=== PATIENT | male | born 1965 | race Hispanic/Latino ===

== ENCOUNTER 2020-11-29 20:05 | Emergency (ER) | payer BC, OTHER ==
--- NOTE | 2020-11-29 20:59 | RAD REPORT ---
EXAM DESCRIPTION: CT - Head Brain Wo Cont - 11/29/2020 8:41 pm CLINICAL HISTORY: Headache COMPARISON: None. TECHNIQUE: Computed axial tomography of the head was obtained. IV contrast was not requested. All CT scans are performed using dose optimization technique as appropriate and may include automated exposure control or mA/KV adjustment according to patient size. FINDINGS: An intracranial bleed is not seen . The ventricles are normal in caliber. No extra-axial fluid collection is noted. Fluid within the sinuses/ mastoids is not seen. IMPRESSION: No acute intracranial abnormality is seen. If patient's symptoms persist MRI of the bra in would be recommended.
[2020-11-29 21:01] LABS: Absolute Lymphocytes (CBC) 1.9 K/uL (0.7-4.9); Basophils % 0.9 % (0-1.3); Hematocrit 42.9 % (39.6-49.0); Lymphocytes % 30.9 % (15.3-44.8); MPV 8.9 fL (7.6-11.3)
[2020-11-29] MEDS ORDERED: ONDANSETRON 4 MG/2 ML VIAL ONE (21:04)
[2020-11-29 21:05] LABS: Protime INR 0.96
[2020-11-29] MEDS ORDERED: NA CHLORIDE 0.9% 1,000 ML ONE (21:05)
[2020-11-29] MEDS ORDERED: MEPERIDINE HCL 25 MG/ML SYR ONE (21:05)
[2020-11-29 21:21] LABS: Potassium 3.5 mmol/L (3.5-5.1)
--- NOTE | 2020-11-29 22:17 | ER ---
Nurse's Notes [facility] Name: Marlon Aparicio Age: 55 yrs Sex: Male : 1965 Arrival Date: 11/29/2020 Time: 20:13 Bed 20 Private MD: Diagnosis: Essential (primary) hypertension;Headache Presentation: 11/29 20:19 Chief complaint: Patient states: Reports he has been feeling anxious got bad news and ea has been feeling shaky and his blood pressure is elevated. Pt reports taking lisinopril 10mg QD. Coronavirus screen: At this time, the client does not indicate any symptoms associated with coronavirus-19. Ebola Screen: No symptoms or risks identified at this time. Initial Sepsis Screen: Does the patient meet any 2 criteria? No. Patient's initial sepsis screen is negative. Does the patient have a suspected source of infection? No. Patient's initial sepsis screen is negative. Risk Assessment: Do you want to hurt yourself or someone else? Patient reports no desire to harm self or others. Onset of symptoms was November 29, 2020. 20:19 Method Of Arrival: Ambulatory ea 20:19 Acuity: KERRIE 3 ea Historical: - Allergies: 20:21 No Known Allergies; ea - Home Meds: 20:21 lisinopril 10 mg Oral tab 1 tab once daily [Active]; ea - PMHx: 20:21 BPH; ea - Immunization history:: Adult Immunizations up to date. - Social history:: Smoking status: unknown. Screenin:21 Abuse screen: Denies threats or abuse. Nutritional screening: No deficits noted. ea Tuberculosis screening: No symptoms or risk factors identified. Fall Risk None identified. Assessment: 21:00 General: Appears in no apparent distress. comfortable, Behavior is calm, cooperative. vg1 Pain: Complains of pain in head Pain currently is 4 out of 10 on a pain scale. Pain began 2 hours ago. Neuro: Level of Consciousness is awake, alert, obeys commands, Oriented to person, place, time, situation, Reports headache. Cardiovascular: Patient's skin is warm and dry. Respiratory: Airway is patent Respiratory effort is even, unlabored. GI: No signs and/or symptoms were reported involving the gastrointestinal system. : No signs and/or symptoms were reported regarding the genitourinary system. EENT: No signs and/or symptoms were reported regarding the EENT system. Derm: Skin is intact, is healthy with good turgor. Musculoskeletal: Circulation, motion, and sensation intact. Vital Signs: 20:19 BP 164 / 105; Pulse 87; Resp 18; Temp 98.1; Pulse Ox 100% ; Weight 72.57 kg; Height 5 ea ft. 8 in. (172.72 cm); 20:19 Body Mass Index 24.33 (72.57 kg, 172.72 cm) ea ED Course: 20:13 Patient arrived in ED. es 20:13 Lydia Jenkins, RN is Primary Nurse. vg1 20:21 Triage completed. ea 20:21 Patient has correct armband on for positive identification. Bed in low position. Call ea light in reach. secured entrance monitor on. Pulse ox on. NIBP on. 20:21 Arm band placed on right wrist. Patient placed in an exam room, on a stretcher, on ea surveillance monitor, on pulse oximetry. EKG completed in triage. Results shown to MD. 20:26 Jin Gold PA is PHCP. cp 20:26 Jaime Lobato MD is Attending Physician. cp 20:41 CT Head Brain wo Cont In Process Unspecified. EDMS 20:54 Initial lab(s) drawn, by me, sent to lab. Inserted saline lock: 20 gauge in left tt3 antecubital area, using aseptic technique. Blood collected. 22:02 Report given to STEPHAINA Erickson. vg1 22:48 No provider procedures requiring assistance completed. IV discontinued, intact, ld1 bleeding controlled, No redness/swelling at site. Administered Medications: 21:00 Drug: NS 0.9% 1000 ml Route: IV; Rate: 1 bolus; Site: left antecubital; vg1 21:47 Follow up: IV Status: Completed infusion; IV Intake: 1000ml vg1 21:01 Drug: Zofran (Ondansetron) 4 mg Route: IVP; Site: left antecubital; vg1 21:47 Follow up: Response: No adverse reaction; Nausea is decreased vg1 21:03 Drug: Demerol (meperidine) 12.5 mg Route: IVP; Site: left antecubital; vg1 21:47 Follow up: Response: No adverse reaction; Pain is decreased vg1 Intake: 21:47 IV: 1000ml; Total: 1000ml. vg1 Outcome: 22:17 Discharge ordered by . cp 22:48 Discharged to home ambulatory. ld1 22:48 Condition: stable 22:48 Discharge instructions given to patient, family, Instructed on discharge instructions, follow up and referral plans. medication usage, Demonstrated understanding of instructions, follow-up care, medications. 22:48 Patient left the ED. ld1 Signatures: Dispatcher [employer] EDKatie Mandujano Corey, PA PA cp Antunez, Elena, RN RN Lydia Dillon RN RN vg1 Tommy Bustamante tt3 Rebekah Cortes RN RN ld1
--- NOTE | 2020-11-29 22:18 | EDPHYS ---
Physician Documentation [facility] Name: Marlon Aparicio Age: 55 yrs Sex: Male : 1965 Arrival Date: 11/29/2020 Time: 20:13 Bed 20 Private MD: ED Physician Jaime Lboato HPI: 11/29 20:35 This 55 yrs old Male presents to ER via Ambulatory with complaints of Elevated cp Blood Pressure. 20:35 The patient has elevated blood pressure and discovered this at home. cp 20:35 Associated signs and symptoms: Pertinent positives: headache, Pertinent negatives: cp chest pain, dizziness, visual changes, vomiting, weakness. Severity of symptoms: in the emergency department the blood pressure is improved, mildly, 164 mm Hg. Patient reports history of hypertension in the past and being prescribed Lisinopril. Patient reports he stopped taking blood pressure medication about 1 month ago. Reports noticing elevated blood pressure today so he took Lisinopril prior to arrival. C/o headache, general weakness. Historical: - Allergies: 20:21 No Known Allergies; ea - Home Meds: 20:21 lisinopril 10 mg Oral tab 1 tab once daily [Active]; ea - PMHx: 20:21 BPH; ea - Immunization history:: Adult Immunizations up to date. - Social history:: Smoking status: unknown. ROS: 20:40 Constitutional: Negative for body aches, chills, fever, poor PO intake. cp 20:40 Eyes: Negative for injury, pain, redness, and discharge. cp 20:40 ENT: Negative for ear pain, sore throat, difficulty swallowing, difficulty handling secretions. 20:40 Cardiovascular: Negative for chest pain, edema, palpitations. 20:40 Respiratory: Negative for cough, shortness of breath, wheezing. 20:40 Abdomen/GI: Negative for abdominal pain, nausea, vomiting, and diarrhea. 20:40 Neuro: Positive for headache, weakness, Negative for altered mental status, dizziness, numbness, tingling. 20:40 All other systems are negative. Exam: 20:20 ECG was reviewed by the Attending Physician. cp 20:45 Constitutional: The patient appears in no acute distress, alert, awake, cp non-diaphoretic, non-toxic, well developed, well nourished. 20:45 Head/Face: Normocephalic, atraumatic. cp 20:45 Eyes: Periorbital structures: appear normal, Pupils: equal, round, and reactive to light and accomodation, Extraocular movements: intact throughout, Conjunctiva: normal, no exudate, no injection, Sclera: no appreciated abnormality, Lids and lashes: appear normal, bilaterally. 20:45 ENT: External ear(s): are unremarkable, Nose: is normal, Mouth: Lips: moist, Oral mucosa: moist, Posterior pharynx: Airway: no evidence of obstruction, patent. 20:45 Neck: ROM/movement: is normal, is supple, without pain, no range of motions limitations. 20:45 Chest/axilla: Inspection: normal, Palpation: is normal, no crepitus, no tenderness. 20:45 Cardiovascular: Rate: normal, Rhythm: regular, Edema: is not appreciated, JVD: is not appreciated. 20:45 Respiratory: the patient does not display signs of respiratory distress, Respirations: normal, no use of accessory muscles, no retractions, labored breathing, is not present, Breath sounds: are clear throughout, no decreased breath sounds. 20:45 Abdomen/GI: Inspection: abdomen appears normal, Palpation: abdomen is soft and non-tender, in all quadrants. 20:45 Neuro: Orientation: to person, place \T\ time. Mentation: is normal, Cerebellar function: is grossly normal, Motor: moves all fours, strength is normal, Sensation: is normal. Vital Signs: 20:19 BP 164 / 105; Pulse 87; Resp 18; Temp 98.1; Pulse Ox 100% ; Weight 72.57 kg; Height 5 ea ft. 8 in. (172.72 cm); 20:19 Body Mass Index 24.33 (72.57 kg, 172.72 cm) ea MDM: 20:30 Patient medically screened. cp 21:00 Differential diagnosis: hypertensive crisis, Malignant HTN, CVA, intracerebral cp hemorrhage. 22:15 Data reviewed: vital signs, nurses notes, lab test result(s), EKG, radiologic studies, cp CT scan. 22:15 Test interpretation: by ED physician or midlevel provider: ECG. Counseling: I had a cp detailed discussion with the patient and/or guardian regarding: the historical points, exam findings, and any diagnostic results supporting the discharge/admit diagnosis, the presence of at least one elevated blood pressure reading (>120/80) during this emergency department visit, lab results, radiology results, the need for outpatient follow up, a family practitioner, to return to the emergency department if symptoms worsen or persist or if there are any questions or concerns that arise at home. ED course: VSS. Headache improved with meds. CT head negative for acute findings. Will discharge to home for continued monitoring. 11/29 20:32 Order name: CBC with Diff; Complete Time: 21:33 cp 11/29 21:34 Interpretation: Reviewed. cp 11/29 20:32 Order name: BMP; Complete Time: 21:33 cp 11/29 21:33 Interpretation: Normal except: GLUC 131; GFR 70. cp 11/29 20:32 Order name: CT Head Brain wo Cont; Complete Time: 21:33 cp 11/29 21:33 Interpretation: Report reviewed. cp 11/29 20:32 Order name: PT-INR; Complete Time: 21:33 cp 11/29 20:32 Order name: EKG; Complete Time: 20:33 cp 11/29 20:32 Order name: EKG - Nurse/Tech; Complete Time: 20:39 cp EC:20 Rate is 77 beats/min. Rhythm is regular. PA interval is normal. QRS interval is normal. cp QT interval is normal. T waves are Inverted in lead aVR. Interpreted by me. Reviewed by me. Administered Medications: 21:00 Drug: NS 0.9% 1000 ml Route: IV; Rate: 1 bolus; Site: left antecubital; vg1 21:47 Follow up: IV Status: Completed infusion; IV Intake: 1000ml vg1 21:01 Drug: Zofran (Ondansetron) 4 mg Route: IVP; Site: left antecubital; vg1 21:47 Follow up: Response: No adverse reaction; Nausea is decreased vg1 21:03 Drug: Demerol (meperidine) 12.5 mg Route: IVP; Site: left antecubital; vg1 21:47 Follow up: Response: No adverse reaction; Pain is decreased vg1 Disposition: 11/30 19:59 Co-signature as Attending Physician, Jaime Lobato MD. ma2 Disposition Summary: 11/29/20 22:17 Discharge Ordered Location: Home cp Problem: new cp Symptoms: have improved cp Condition: Stable cp Diagnosis - Essential (primary) hypertension cp - Headache cp Followup: cp - With: Private Physician - When: 2 - 3 days - Reason: Recheck today's complaints Discharge Instructions: - Discharge Summary Sheet cp - General Headache Without Cause cp - Hypertension, Adult cp - How to Take Your Blood Pressure, [id number] cp - Form - Blood Pressure Record Sheet cp - Aspirin and Your Heart cp Forms: - Medication Reconciliation Form cp - Thank You Letter cp - Antibiotic Education cp - Prescription Opioid Use cp Signatures: Dispatcher [employer] EDMS Jin Gold PA PA cp Karina Crespo, RN RN Jaime Taylor MD MD ma2 Lydia Jenkins RN RN vg1 Corrections: (The following items were deleted from the chart) 01:31 01:30 This 55 yrs old Male presents to ER via Ambulatory with complaints of cp Elevated Blood Pressure. cp
[2020-11-29 22:58] VITALS: BP 164/105; TEMP 98.1; O2SAT 100
--- NOTE | 2020-11-30 16:35 | EKG ---
Test Date: 2020-11-29 Test Time: 20:14:50 College Coach: LING MEASUREMENT RESULTS: Intervals: Rate: 77 RI: 164 QRSD: 86 QT: 368 QTc: 416 [place]: P: 30 RI: 164 QRS: 55 T: 47 INTERPRETIVE STATEMENTS: Normal sinus rhythm Normal ECG No previous ECG available for comparison Electronically Signed On 11-30-20 16:33:05 CDT by Keyon Jean Baptiste
== END 2020-11-29 22:48 | disposition home or self-care (01) ==
LOC: ER 20:05
DX: I10 Essential (primary) hypertension (principal)
CPT/HCPCS: 85025; 80048; 36415; 85610; 70450; J2175; J7030; J2405; 93005; 96361; 96374; 96375; 99284

== ENCOUNTER 2021-02-13 07:32 | Day surgery (SDC) | payer OTHER ==
[2021-02-13] MEDS ORDERED: Ringers Lactate 1,000 ML IV ONE (08:00)
[2021-02-13] MEDS ORDERED: LIDOCAINE 1% MPF 5 ML VIAL ONE (08:49)
[2021-02-13] MEDS ORDERED: propofoL 200 MG/20 ML VIAL IV ONE (08:49)
--- NOTE | 2021-02-13 08:52 | ENDO RPT ---
[address], [address] COLONOSCOPY PROCEDURE REPORT EXAM DATE: 02/13/2021 PATIENT NAME: Marlon Chapman MR #: [id number] BIRTHDATE: 1965 ATTENDING: Mundo Zelaya MD STATUS: outpatient HOUSE PARENT: Meera Zhao RN and Eva Brown CST INDICATIONS: The patient is a 55 yr old Male here for a colonoscopy due to rectal bleeding PROCEDURE PERFORMED: Colonoscopy with biopsy MEDICATIONS: Per Anesthesia. ESTIMATED BLOOD LOSS: None CONSENT: The patient understands the risks and benefits of the procedure and understands that these risks include, but are not limited to: sedation, allergic reaction, infection, perforation and/or bleeding. Alternative means of evaluation and treatment include, among others: physical exam, x-rays, and/or surgical intervention. The patient elects to proceed with this endoscopic procedure. DESCRIPTION OF PROCEDURE: During intra-op preparation period all mechanical medical equipment was checked for proper function. Hand hygiene and appropriate measures for infection prevention was taken. Procedure, possible complications, alternatives including, but not limited to possibility of bleeding, perforation, tear, infection, sepsis, need for surgery, need for blood transfusion, were explained to the patient. After the risks, benefits and alternatives of the procedure were thoroughly explained, Informed consent was verified, confirmed and timeout was successfully executed by the treatment team. The patient was placed in the left lateral position. A digital rectal exam was performed and revealed external hemorrhoids. After appropriate level of anesthesia, the scope was passed. The EC-[id number] ([id number]) endoscope was introduced through the anus and advanced to the cecum, which was identified by transillumination from the light source, the appendix, and the ileocecal valve. The quality of the prep was good. The instrument was then slowly withdrawn as the colon was fully examined. Scope withdrawal time was . COLON FINDINGS: A circumferential diffuse patch of abnormal mucosa was found in the rectum from anal verge to approximately 20 cm, continuous with a clear delineation to normal mucosa pass that point. The mucosa was edematous, congested, oozing blood and friable. Multiple biopsies of the area were performed using hot forceps. Retroflexed views revealed no abnormalities. The scope was then completely withdrawn from the patient and the procedure terminated. ADVERSE EVENTS: There were no complications. IMPRESSIONS: Circumferential diffuse abnormal mucosa was found in the rectum; The mucosa was edematous, congested, oozing blood and friable; multiple biopsies of the area were performed using hot forceps RECOMMENDATIONS: 1. await biopsy results 2. follow-up: office 1 week(s) 3. levaquin 750 daily RECALL: for Colonoscopy, pending biopsy results. Mundo Zelaya MD eSigned: Mundo Zelaya MD 02/13/2021 8:51 AM cc: Clement Hudson MD CPT CODES: ICD9 CODES: PATIENT NAME: Marlon Chapman MR#: [id number]
[2021-02-13 09:23] VITALS: TEMP 96.5
[2021-02-13 09:24] VITALS: BP 101/76; O2SAT 99
== END 2021-02-13 09:33 | disposition home or self-care (01) ==
LOC: OR 07:32
PROVIDERS: ATTEND Surgery
PROC: 0DBP8ZX Excision of Rectum, Via Natural or Artificial Opening Endoscopic, Diagnostic (ICD-10-PCS; principal; 2021-02-13 08:30)
DX: K62.5 Hemorrhage of anus and rectum (principal); I10 Essential (primary) hypertension; E78.5 Hyperlipidemia, unspecified; F41.8 Other specified anxiety disorders; K64.4 Residual hemorrhoidal skin tags; K52.9 Noninfective gastroenteritis and colitis, unspecified; K62.89 Other specified diseases of anus and rectum; R19.7 Diarrhea, unspecified; Z80.0 Family history of malignant neoplasm of digestive organs; Z20.822 Contact with and (suspected) exposure to COVID-19
CPT/HCPCS: 88305; 45384; U0002; J2704; J7120

== ENCOUNTER 2021-06-10 21:40 | Emergency (ER) | payer OTHER ==
--- OUTSIDE RECORDS SUMMARY | 2021-06-10 21:43 | XMS REPORT | Continuity of Care Document ---
:1965 Author Organization [facility] t Address [address] [place] [address] Care Team Providers Name Role Phone Pcp, Patient Does Not Have A Primary Care Physician +[id number] Only, Db Test Attending Clinician Unavailable [employer] Attending Clinician Doctor Unassigned, Name Attending Clinician Unavailable Payers Payer Name Policy Type Policy Number Effective Date Expiration Date S ource Problems This patient has no known problems. Allergies, Adverse Reactions, Alerts This patient has no known allergies or adverse reactions. Social History Social Habit Start Date Stop Date Quantity Comments Source Exposure to Not sure [facility] SARS-CoV-2 (event) [facility] Sex Assigned At [birth year] [facility] 00:00:00 00:00:00 [facility] Smoking Status Start Date Stop Date Source Unknown if ever smoked [facility] Medications This patient has no known medications. Immunizations Ordered Filled Immunization Date Status Comments Sour e Immunization Name Name SARS-COV-2 COVID-19 2020-09-05 Completed Unive rsity of PFIZER VACCINE 00:00:00 [facility] SARS-COV-2 COVID-19 2020-09-05 Completed Unive rsity of PFIZER VACCINE 00:00:00 [facility] SARS-COV-2 COVID-19 2020-09-05 Completed Unive rsity of PFIZER VACCINE 00:00:00 [facility] SARS-COV-2 COVID-19 2020-08-13 Completed Unive rsity of PFIZER VACCINE 00:00:00 [facility] SARS-COV-2 COVID-19 2020-08-13 Completed Unive rsity of PFIZER VACCINE 00:00:00 [facility] SARS-COV-2 COVID-19 2020-08-13 Completed Unive rsity of PFIZER VACCINE 00:00:00 [facility] Procedures This patient has no known procedures. Encounters Start End Encounter Admission Attending Care Care Encounter Source Date/Time Date/Time Type Type Clinicians Facility Department ID 2021-06-08 2021-06-08 Laboratory Only, Ang Db Test [facility] [id number] [id number] [facility] 16:30:00 16:45:00 Only [employer] [id number] [facility] [id number] [place] as ALAN?BLEA [phone] [address] MEDICAL OFFICE BUILDING 2021-06-08 2021-06-08 Letter Doctor HAYDEE [id number] [facility] 00:00:00 00:00:00 (Out) Unassigned, JOSE ANTONIO [id number] ity of [facility] [id number] [place] as [phone] [address] 2021-06-08 2021-06-08 Letter Doctor HAYDEE [id number] [facility] 00:00:00 00:00:00 (Out) Unassigned, JOSE ANTONIO [id number] ity of [facility] [id number] [place] as [phone] [address] 2021-03-31 2021-03-31 Outpatient [facility] [id number] [facility] 2021-03-10 2021-03-10 [facility] [id number] [facility] 2021-03-03 2021-03-03 [facility] [id number] [facility] 2021-01-31 2021-01-31 [facility] [id number] [facility] 2021-01-02 2021-01-02 [facility] [id number] 2020-12-16 2020-12-16 [facility] [id number] [facility] Clin[facility] Results This patient has no known results.
--- NOTE | 2021-06-10 22:14 | ER ---
Nurse's Notes [facility] Name: Marlon Aparicio Age: 55 yrs Sex: Male : 1965 Arrival Date: 06/10/2021 Time: 21:43 Bed Waiting Private MD: Diagnosis: ED Course: 06/10 21:43 Patient arrived in ED. bp1 22:13 Patient's name was called from ER lobby. No response. Unable to locate patient. Will bb disposition as left without being seen by a provider. Administered Medications: No medications were administered Outcome: 22:14 Patient left the ED. bb Signatures: Mariella Fan RN RN bb Tiarra Cullen bp1
== END 2021-06-10 22:14 | disposition left against medical advice (07) ==
LOC: ER 21:40
DX: Z02.9 Encounter for administrative examinations, unspecified (principal)

== ENCOUNTER 2023-01-10 13:20 | Emergency (ER) | payer OTHER ==
--- OUTSIDE RECORDS SUMMARY | 2023-01-10 13:26 | XMS REPORT | Continuity of Care Document ---
:1965 Author Organization [facility] t Address [address] [place] [address] [place] [id number] Care Team Providers Name Role Phone Chris Hudsoncurt Horne Primary Care Physician Chris Hudsonh Coleen Attending Clinician Unavailable Doctor Unassigned, [place] Attending Clinician Unavailable MUKUND SHEARER Attending Clinician Unavailable Mukund Shearer MD Attending Clinician ROMA DAVIS Attending Clinician Unavailable ROMA DAVIS Attending Clinician Unavailable [facility], [facility] Attending Clinician Unavailable Roma Davis MD Attending Clinician CHRISTIAN MACDONALD Attending Clinician Unavailable Christian Macdonald MD Attending Clinician Only, Ang Db Test Attending Clinician Unavailable Mercy Mckeon Attending Clinician MERCY MURRELL Attending Clinician Unavailable BERHANE MACEDO Attending Clinician Unavailable MUKUND SHEARER Admitting Clinician Unavailable Payers Payer Name Policy Type Policy Number Effective Date Expiration Date Acosta MEZA 53 [id number] 2020 [facility] - 00:00:00 [facility] Problems Condition Condition Condition Status Onset Resolution Last Treating Co mments Source Name Details Category Date Date Treatment Clinician Date No known No known Disease Unive rs active active ity of problems problems [facility] Mixed Mixed Problem Common hyperlipid hyperlipid Sp myron emia emia - [facility] Essential Essential Problem Com mon hypertensi (primary) Spi rit on hypertensi - [facility] on [facility] Generalize MARIANA Problem Commo n d anxiety (generaliz Spi rit disorder ed anxiety - CH I disorder) [facility] [id number] Non-season Problem Com mon al [facility] allergic [facility] All[facility]ies, Adverse Reactions, Alerts Allergy Allergy Status Severity Reaction(s) Onset Inactive Treating Comm ents Source Name Type Date Date Clinician NO KNOWN Drug Active Univers ALLERGIE Class ity of S [facility] Social History Social Habit Start Date Stop Date Quantity Comments Source History of Tobacco [facility] Sex Assigned At [facility] - [facility] Exposure to 2021-09-30 2021-10-10 Not sure [facility] SARS-CoV-2 (event) 00:00:00 13:55:00 Medica l Branch Smoking Status Start Date Stop Date Source Tobacco smoking consumption [facility] unknown Branch Never Smoker [facility] Medications Ordered Filled Start Stop Current Ordering Indication Dosage Frequency Signature Comments Components Source Medication Medication Date Date Medication? Clinician (SIG) Name Name clonazePAM clonazePAM No 1{table clonazePAM 0.25 MG 0.25 MG 5-16 t_on_th 0.25 MG 00:00: e_tongu e_and_a llow_to _dissol ve} clonazePAM clonazePAM No 1{table clonazePAM 0.25 MG 0.25 MG 4-14 t_on_th 0.25 MG 00:00: e_tongu 00 e_and_a llow_to _dissol ve} clonazePAM clonazePAM No 1{table clonazePAM 0.25 MG 0.25 MG 4-14 t_on_th 0.25 MG 00:00: e_tongu 00 e_and_a llow_to _dissol ve} Azithromyci Azithromyci 2022-0 2022- No QD Azithromyc n 250 MG n 250 MG 07-26 in 250 MG 00:00: 00:00 00 :00 ketorolac 2021- No 30mg 30 mg, Unive rs (TORADOL) 06-19 Intramuscu ity of injection 11:45: 10:37 lar, ONCE, [place] 30 mg 00 :00 1 dose, On Medical Mon Branch 06/19/21 at 0545, MARY butalbital- 2021- No 1{tbl} 1 tablet, Univers acetaminoph 06-19 Oral, ity of en-caff 10:45: 09:51 ONCE, 1 [place] (ESGIC) 00 :00 dose, On Medical 50-325-40 Mon Branch mg tablet 1 06/19/21 at tablet 0445, Routine traMADoL Yes 4647 50mg Take 1 Univers (ULTRAM) 50 1-17 tablet by ity of mg tablet 00:00: mouth [place] 00 every 6 Medical (six) Branch hours as needed for Pain (scale 7-10). Indication s: acute pain traMADoL Yes 4647 50mg Take 1 Univers (ULTRAM) 50 1-17 tablet by ity of mg tablet 00:00: mouth [place] 00 every 6 Medical (six) Branch hours as needed for Pain (scale 7-10). Indication s: acute pain traMADoL Yes 4647 50mg Take 1 Univers (ULTRAM) 50 1-17 tablet by ity of mg tablet 00:00: mouth [place] 00 every 6 Medical (six) Branch hours as needed for Pain (scale 7-10). Indication s: acute pain traMADoL Yes 4647 50mg Take 1 Univers (ULTRAM) 50 1-17 tablet by ity of mg tablet 00:00: mouth [place] 00 every 6 Medical (six) Branch hours as needed for Pain (scale 7-10). Indication s: acute pain traMADoL Yes 4647 50mg Take 1 Univers (ULTRAM) 50 1-17 tablet by ity of mg tablet 00:00: mouth [place] 00 every 6 Medical (six) Branch hours as needed for Pain (scale 7-10). Indication s: acute pain traMADoL 2022-0 Yes 4647 50mg Take 1 Univers (ULTRAM) 50 1-17 tablet by ity of mg tablet 00:00: mouth [place] 00 every 6 Medical (six) Branch hours as needed for Pain (scale 7-10). Indication s: acute pain traMADoL Yes 4647 50mg Take 1 Univers (ULTRAM) 50 1-17 tablet by ity of mg tablet 00:00: mouth [place] 00 every 6 Medical (six) Branch hours as needed for Pain (scale 7-10). Indication s: acute pain traMADoL Yes 4647 50mg Take 1 Univers (ULTRAM) 50 1-17 tablet by ity of mg tablet 00:00: mouth [place] 00 every 6 Medical (six) Branch hours as needed for Pain (scale 7-10). Indication s: acute pain traMADoL Yes 4647 50mg Take 1 Univers (ULTRAM) 50 1-17 tablet by ity of mg tablet 00:00: mouth [place] 00 every 6 Medical (six) Branch hours as needed for Pain (scale 7-10). Indication s: acute pain traMADoL Yes 4647 50mg Take 1 Univers (ULTRAM) 50 1-17 tablet by ity of mg tablet 00:00: mouth [place] 00 every 6 Medical (six) Branch hours as needed for Pain (scale 7-10). Indication s: acute pain traMADoL Yes 4647 50mg Take 1 Univers (ULTRAM) 50 1-17 tablet by ity of mg tablet 00:00: mouth [place] 00 every 6 Medical (six) Branch hours as needed for Pain (scale 7-10). Indication s: acute pain Flonase Flonase 2020-06 No 1{spray QD Flonase Allergy Allergy 0-08 _in_eac Allergy Relief 50 Relief 50 00:00: h_nostr Relief 50 MCG/ACT MCG/ACT 00 il} MCG/ACT Flonase Flonase 2020-06 No 1{spray QD Flonase Allergy Allergy 0-08 _in_eac Allergy Relief 50 Relief 50 00:00: h_nostr Relief 50 MCG/ACT MCG/ACT 00 il} MCG/ACT Flonase Flonase 2020-06 No 1{spray QD Flonase Allergy Allergy 0-08 _in_eac Allergy Relief 50 Relief 50 00:00: h_nostr Relief 50 MCG/ACT MCG/ACT 00 il} MCG/ACT Flonase Flonase 2020-06 No 1{spray QD Flonase Allergy Allergy 0-08 _in_eac Allergy Relief 50 Relief 50 00:00: h_nostr Relief 50 MCG/ACT MCG/ACT 00 il} MCG/ACT Flonase Flonase 2020-06 No 1{spray QD Flonase Allergy Allergy 0-08 _in_eac Allergy Relief 50 Relief 50 00:00: h_nostr Relief 50 MCG/ACT MCG/ACT 00 il} MCG/ACT Flonase Flonase 2020-06 No 1{spray QD Flonase Allergy Allergy 0-08 _in_eac Allergy Relief 50 Relief 50 00:00: h_nostr Relief 50 MCG/ACT MCG/ACT 00 il} MCG/ACT Fluticasone Fluticasone 2020-06 No 1{spray QD Fluticason Propionate Propionate 0-01 _in_eac e 50 MCG/ACT 50 MCG/ACT 00:00: h_nostr Propionate 00 il} 50 MCG/ACT Fluticasone Fluticasone 2020-06 No 1{spray QD Fluticason Propionate Propionate 0-01 _in_eac e 50 MCG/ACT 50 MCG/ACT 00:00: h_nostr Propionate 00 il} 50 MCG/ACT Fluticasone Fluticasone 2020-06 No 1{spray QD Fluticason Propionate Propionate 0-01 _in_eac e 50 MCG/ACT 50 MCG/ACT 00:00: h_nostr Propionate 00 il} 50 MCG/ACT Fluticasone Fluticasone 2020-06 No 1{spray QD Fluticason Propionate Propionate 0-01 _in_eac e 50 MCG/ACT 50 MCG/ACT 00:00: h_nostr Propionate 00 il} 50 MCG/ACT Fluticasone Fluticasone 2020-06 No 1{spray QD Fluticason Propionate Propionate 0-01 _in_eac e 50 MCG/ACT 50 MCG/ACT 00:00: h_nostr Propionate 00 il} 50 MCG/ACT Fluticasone Fluticasone 2020-06 No 1{spray QD Fluticason Propionate Propionate 0-01 _in_eac e 50 MCG/ACT 50 MCG/ACT 00:00: h_nostr Propionate 00 il} 50 MCG/ACT Fluticasone Fluticasone 2020-06 No 1{spray QD Fluticason Propionate Propionate 0 _in_eac e 50 MCG/ACT 50 MCG/ACT 00:00: h_nostr Propionate 00 il} 50 MCG/ACT Metoprolol Metoprolol 2020-0 No 1{table QD Metoprolol Succinate Succinate 8-31 t} Succinate ER 50 MG ER 50 MG 00:00: ER 50 MG 00 Propranolol Propranolol 2020-0 No BID Propranolo HCl 10 MG HCl 10 MG 8-02 l HCl 10 00:00: MG 00 Propranolol Propranolol 2020-0 No BID Propranolo HCl 10 MG HCl 10 MG 8-02 l HCl 10 00:00: MG 00 Propranolol Propranolol 2020-0 No BID Propranolo HCl 10 MG HCl 10 MG 8-02 l HCl 10 00:00: MG 00 Propranolol Propranolol 2020-0 No BID Propranolo HCl 10 MG HCl 10 MG 8-02 l HCl 10 00:00: MG 00 Propranolol Propranolol 2020-0 No 1{table QD Propranolo HCl 10 MG HCl 10 MG 7-16 t} l HCl 10 00:00: MG 00 Propranolol Propranolol 2020-0 No 1{table QD Propranolo HCl 10 MG HCl 10 MG 7-16 t} l HCl 10 00:00: MG 00 Propranolol Propranolol No Propranolo HCl 10 MG HCl 10 MG l HCl 10 MG Metoprolol Metoprolol No 1{table QD Metoprolol Succinate Succinate t} Succinate ER 50 MG ER 50 MG ER 50 MG Metoprolol Metoprolol No 1{table QD Metoprolol Succinate Succinate t} Succinate ER 50 MG ER 50 MG ER 50 MG Propranolol Propranolol No Propranolo HCl 10 MG HCl 10 MG l HCl 10 MG Metoprolol Metoprolol No 1{table QD Metoprolol Succinate Succinate t} Succinate ER 50 MG ER 50 MG ER 50 MG Propranolol Propranolol No Propranolo HCl 10 MG HCl 10 MG l HCl 10 MG Metoprolol Metoprolol No 1{table QD Metoprolol Succinate Succinate t} Succinate ER 50 MG ER 50 MG ER 50 MG Propranolol Propranolol No Propranolo HCl 10 MG HCl 10 MG l HCl 10 MG Metoprolol Metoprolol No 1{table QD Metoprolol Succinate Succinate t} Succinate ER 50 MG ER 50 MG ER 50 MG Propranolol Propranolol No Propranolo HCl 10 MG HCl 10 MG l HCl 10 MG Fluticasone Fluticasone No 1{spray QD Fluticason Propionate Propionate _in_eac e 50 MCG/ACT 50 MCG/ACT h_nostr Propionate il} 50 MCG/ACT Metoprolol Metoprolol No 1{table QD Metoprolol Succinate Succinate t} Succinate ER 50 MG ER 50 MG ER 50 MG Lisinopril Lisinopril No 1{table QD Lisinopril 10 MG 10 MG t} 10 MG Carvedilol Carvedilol No 1{table BID Carvedilol 6.25 MG 6.25 MG t_with_ 6.25 MG food} Metoprolol Metoprolol No 1{table QD Metoprolol Succinate Succinate t} Succinate ER 50 MG ER 50 MG ER 50 MG Metoprolol Metoprolol No 1{table QD Metoprolol Succinate Succinate t} Succinate ER 50 MG ER 50 MG ER 50 MG Immunizations Ordered Filled Immunization Date Status Comments Sourc e Immunization Name Name Adacel (Tdap) Adacel (Tdap) 2021-03-03 Completed [facility] - 08[facility]00 [facility] Adacel (Tdap) Adacel (Tdap) 2021-03-03 Completed [facility] - 08:34:00 [facility] Adacel (Tdap) Adacel (Tdap) 2021-03-03 Completed [facility] - 08:34:00 [facility] Adacel (Tdap) Adacel (Tdap) 2021-03-03 Completed [facility] - 08:34:00 [facility] Adacel (Tdap) Adacel (Tdap) 2021-03-03 Completed [facility] - 08:34:00 [facility] Adacel (Tdap) Adacel (Tdap) 2021-03-03 Completed [facility] - 08:34:00 [facility] Adacel (Tdap) Adacel (Tdap) 2021-03-03 Completed [facility] - 08:34:00 [facility] Adacel (Tdap) Adacel (Tdap) 2021-03-03 Completed [facility] - 08:34:00 [facility] Afluria Afluria 2021-03-02 Completed [facility] - 08[facility]21:00 [facility] Afluria Afluria 2021-03-02 Completed [facility] - 08:21:00 [facility] Afluria Afluria 2021-03-02 Completed [facility] - 08:21:00 [facility] Afluria Afluria 2021-03-02 Completed [facility] - 08:21:00 [facility] Afluria Afluria 2021-03-02 Completed [facility] - 08:21:00 [facility] Afluria Afluria 2021-03-02 Completed [facility] - 08:21:00 [facility] Afluria Afluria 2021-03-02 Completed [facility] - 08:21:00 [facility] Afluria Afluria 2021-03-02 Completed [facility] - 08:21:00 [facility] SARS-COV-2 COVID-19 2020-09-05 Completed Unive rsity of PFIZER VACCINE 00:00:00 [facility] SARS-COV-2 COVID-19 2020-09-05 Completed Unive rsity of PFIZER VACCINE 00:00:00 [facility] SARS-COV-2 COVID-19 2020-09-05 Completed Unive rsity of PFIZER VACCINE 00:00:00 [facility] SARS-COV-2 COVID-19 2020-09-05 Completed Unive rsity of PFIZER VACCINE 00:00:00 [facility] SARS-COV-2 COVID-19 2020-09-05 Completed Unive rsity of PFIZER VACCINE 00:00:00 [facility] SARS-COV-2 COVID-19 2020-09-05 Completed Unive rsity of PFIZER VACCINE 00:00:00 [facility] SARS-COV-2 COVID-19 2020-09-05 Completed Unive rsity of PFIZER VACCINE 00:00:00 [facility] SARS-COV-2 COVID-19 2020-08-13 Completed Unive rsity of PFIZER VACCINE 00:00:00 [facility] SARS-COV-2 COVID-19 2020-08-13 Completed Unive rsity of PFIZER VACCINE 00:00:00 [facility] SARS-COV-2 COVID-19 2020-08-13 Completed Unive rsity of PFIZER VACCINE 00:00:00 [facility] SARS-COV-2 COVID-19 2020-08-13 Completed Unive rsity of PFIZER VACCINE 00:00:00 [facility] SARS-COV-2 COVID-19 2020-08-13 Completed Unive rsity of PFIZER VACCINE 00:00:00 [facility] SARS-COV-2 COVID-19 2020-08-13 Completed Unive rsity of PFIZER VACCINE 00:00:00 [facility] SARS-COV-2 COVID-19 2020-08-13 Completed Unive rsity of PFIZER VACCINE 00:00:00 [facility] Vital Signs Vital Name Observation Time Observation Value Comments Source height 2021-09-14 16:20:00 69 [in_i] [facility] weight 2021-09-14 16:20:00 156 [lb_av] [facility] bmi 2021-09-14 16:20:00 23.03 kg/m2 [facility] height 2021-07-26 11:00:00 69 [in_i] [facility] weight 2021-07-26 11:00:00 156 [lb_av] [facility] temperature 2021-07-26 11:00:00 98 [degF] [facility] bmi 2021-07-26 11:00:00 23.03 kg/m2 [facility] blood pressure 2021-07-26 11:00:00 125 mm[Hg] [facility] - systolic [facility] blood pressure 2021-07-26 11:00:00 86 mm[Hg] [facility] - diastolic [facility] Systolic blood 2021-06-19 10:00:00 125 mm[Hg] Univer sity of pressure [facility] Diastolic blood 2021-06-19 10:00:00 89 mm[Hg] Unive rsity of pressure [facility] Heart rate 2021-06-19 10:00:00 68 /min [facility] [place] Respiratory rate 2021-06-19 10:00:00 15 /min [facility] in 2021-06-19 10:00:00 98 /min University Arterial blood by [facility] Pulse oximetry Branch Body temperature 2021-06-19 09:14:00 36.56 Lynne [facility] Body height 2021-06-19 09:14:00 175.3 cm Universi ty [facility] Body weight 2021-06-19 09:14:00 71.169 kg Universi ty [facility] BMI 2021-06-19 09:14:00 23.17 kg/m2 Universi [facility] [place] height 2021-03-31 11:30:00 69 [in_i] [facility] weight 2021-03-31 11:30:00 154.2 [lb_av] [facility] temperature 2021-03-31 11:30:00 97.3 [degF] [facility] bmi 2021-03-31 11:30:00 22.77 kg/m2 [facility] oximetry 2021-03-31 11:30:00 98 % [facility] respiratory rate 2021-03-31 11:30:00 17 /min Comm on [facility] blood pressure 2021-03-31 11:30:00 114 mm[Hg] [facility] - systolic [facility] blood pressure 2021-03-31 11:30:00 77 mm[Hg] Common [facility] - diastolic [facility] height 2021-03-03 08:20:00 69 [in_i] [facility] weight 2021-03-03 08:20:00 152.5 [lb_av] [facility] temperature 2021-03-03 08:20:00 97.0 [degF] [facility] bmi 2021-03-03 08:20:00 22.52 kg/m2 [facility] oximetry 2021-03-03 08:20:00 97 % [facility] respiratory rate 2021-03-03 08:20:00 16 /min Comm on [facility] blood pressure 2021-03-03 08:20:00 121 mm[Hg] Common [facility] - systolic [facility] blood pressure 2021-03-03 08:20:00 80 mm[Hg] Common [facility] - diastolic [facility] height 2021-01-31 16:40:00 69 [in_i] Common [facility] weight 2021-01-31 16:40:00 150.0 [lb_av] Common [facility] temperature 2021-01-31 16:40:00 98.1 [degF] Common [facility] bmi 2021-01-31 16:40:00 22.15 kg/m2 [facility] oximetry 2021-01-31 16:40:00 98 % Common [facility] respiratory rate 2021-01-31 16:40:00 17 /min Comm on [facility] blood pressure 2021-01-31 16:40:00 131 mm[Hg] Common [facility] - systolic [facility] blood pressure 2021-01-31 16:40:00 79 mm[Hg] Common [facility] - diastolic [facility] height 2020-12-16 09:30:00 69 [in_i] Common [facility] weight 2020-12-16 09:30:00 154.7 [lb_av] Common [facility] temperature 2020-12-16 09:30:00 97.2 [degF] Common [facility] bmi 2020-12-16 09:30:00 22.84 kg/m2 Common [facility] oximetry 2020-12-16 09:30:00 97 % Common [facility] respiratory rate 2020-12-16 09:30:00 16 /min Comm on [facility] blood pressure 2020-12-16 09:30:00 104 mm[Hg] Common [facility] - systolic [facility] blood pressure 2020-12-16 09:30:00 69 mm[Hg] Common [facility] Procedures Procedure Date / Time Performing Clinician Source Performed AUTHORIZATION FOR 2022-02-28 05:01:00 Doctor Unassigned, No Univ [facility] RELEASE OF PHI Name Medical Branch AUTHORIZATION FOR 2021-10-26 05:01:00 Doctor Unassigned, No [facility] Name Medical Branch US ABDOMEN LIMITED 2021-10-13 21:12:27 Mukund Shearer [facility] [place] CONSENT/REFUSAL FOR 2021-09-26 17:32:52 Doctor Unassigned, No [facility] [place] DIAGNOSIS AND TREATMENT Name Medical Branch NOTICE OF PRIVACY 2021-06-19 09:05:44 Doctor Unassigned, No Univ [facility] PRACTICES Name Medical Branch CONSENT/REFUSAL FOR 2021-06-19 09:05:29 Doctor Unassigned, No [facility] DIAGNOSIS AND TREATMENT Name Medical Branch Encounters Start End Encounter Admission Attending Care Care Encounter Source Date/Time Date/Time Type Type Clinicians Facility Department ID 2022-10-15 Outpatient Hudson, [facility] [id number] Common 11:54:00 Clement [address] [facility] 2021-10-03 [facility], [facility] [id number] Common 12:01:01 Clement [facility] 2021-07-26 Outpatient Hudson, [facility] [id number] Common 08:28:02 Clement [facility] 2021-07-20 [facility], [facility] [id number] Common 16:50:03 Clement [facility] 2021-06-28 Outpatient Hudson, [facility] [id number] Common 14:06:13 Clement 23156 [facility] 2021-06-28 Outpatient Hudson, [facility] [id number] Common 14:02:18 Clement 86752 [facility] 2021-06-28 Outpatient Hudson, [facility] [id number] Common 13:55:14 Clement 01866 [facility] 2021-06-28 Outpatient Hudson, [facility] [id number] Common 13:45:53 Clement 11187 [facility] 2021-06-28 Outpatient Hudson, [facility] [id number] Common 13:32:49 Clement 16170 [facility] 2021-06-28 Outpatient Hudson, [facility] [id number] Common 13:31:02 Clement 55034 [facility] 2021-06-28 Outpatient Hudson, [facility] [id number] Common 13:26:54 Clement 316[address] [facility] 2022-02-28 2022-02-28 Orders Doctor HAYDEE [id number] Univers 00:00:00 00:00:00 Only Unassigned, JOSE ANTONIO [id number] ity of [place] [facility] [id number] [place] as [phone] [address] 2021-10-26 2021-10-26 Orders Doctor HAYDEE [id number] [facility] 00:00:00 00:00:00 Only Unassigned, JOSE ANTONIO [id number] ity of [place] [facility] [id number] [place] as [phone] [address] 2021-10-13 2021-10-13 Outpatient R NICA [facility] [id number] Univers 15:58:14 23:59:00 MUKUND ity [facility] 2021-10-13 2021-10-13 [facility] Shearer, [facility] [id number] Univers 15:58:14 23:59:00 Encounter Mukund CRISOSTOMO [id number] ity [facility] [id number] [facility] [id number] [facility] [address] [place] 2021-10-11 2021-10-11 Outpatient R ROMA DAVIS [facility] [id number] Univers 19:30:00 19:30:00 ROMA DAVIS ity [facility] 2021-09-26 2021-09-26 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 10 ity of [place] [id number] [facility] [id number] [facility] 193 Branch 2021-09-26 2021-09-26 Outpatient R ROMA DAVIS [facility] [id number] Univers 12:00:00 12:00:00 BLAIR DAVISSanjay ity [facility] 2021-09-26 2021-09-26 Orders Doctor HAYDEE [id number] Univers 00:00:00 00:00:00 Only Unassigned, JOSE ANTONIO [id number] ity of [facility] [id number] [place] [address] [id number] [facility] 009 Branch 2021-09-14 2021-09-14 OL DIG E/M STLMLC STLMLC [id number] Common 00:00:00 00:00:00 [facility] 11-20 Spir it [facility] 2021-09-14 2021-09-14 (TEL) STLMLC STLMLC [id number] Co mmon 00:00:00 00:00:00 [facility] 2021-07-26 2021-07-26 (TEL) STLMLC STLMLC [id number] Co mmon 00:00:00 00:00:00 [facility] 2021-07-26 2021-07-26 OFFICE STLMLC STLMLC [id number] Co mmon 00:00:00 00:00:00 VISIT EST Spir it PT LEVEL 3 - [facility] 2021-07-07 2021-07-07 (TEL) STLMLC STLMLC [id number] Co mmon 00:00:00 00:00:00 [facility] 2021-06-19 2021-06-19 Emergency X TORRES [facility] ERT [id number] Univers 03:16:00 05:09:00 ANASTASIALI ity of [facility] 2021-06-19 2021-06-19 Emergency Yar[place], [facility] [id number] Univers 03:16:00 05:09:00 Christian CRISOSTOMO [id number] ity of [place] [id number] [place] [phone] [address] 2021-06-16 2021-06-16 Laboratory Only, Ang Db Test [facility] [id number] Univers 10:15:00 10:30:00 Only Nyasia [facility] [id number] ity of [place] [id number] [place] as ALAN?BLEA [id number] [address] MEDICAL OFFICE BUILDING 2021-06-16 2021-06-16 Outpatient R NYASIA [facility] [id number] Univers 10:15:00 10:16:47 MERCY ity [facility] 2021-03-31 2021-03-31 OFFICE STLMLC STLMLC [id number] Co mmon 00:00:00 00:00:00 VISIT EST Spir it PT LEVEL 3 - [facility] 2021-03-10 2021-03-10 (TEL) STLMLC STLMLC [id number] Co mmon 00:00:00 00:00:00 [facility] 2021-03-03 2021-03-03 PREV VISIT STLMLC STLMLC [id number] Common 00:00:00 00:00:00 EST AGE [facility] 40-64 - [facility] [facility] 2021-01-31 2021-01-31 OFFICE STLMLC STLMLC [id number] Co mmon 00:00:00 00:00:00 VISIT EST Spir it PT LEVEL 3 - [facility] 2021-01-02 2021-01-02 (TEL) STLMLC STLMLC [id number] Co mmon 00:00:00 00:00:00 [facility] 2020-12-16 2020-12-16 OFFICE STLMLC STLMLC [id number] Co mmon 00:00:00 00:00:00 VISIT NEW Spir it PT LEVEL 4 - [facility] 2020-09-05 2020-09-05 Outpatient Larry MACEDO [facility] [id number] Manuel 08:20:00 08:20:00 [place] ity [facility] 2020-08-13 2020-08-13 Outpatient [facility] [id number] [employer] 08:55:00 08:55:00 [facility] Results This patient has no known results.
[2023-01-10 14:14] LABS: Absolute Lymphocytes (CBC) 1.9 K/uL (0.7-4.9); Hematocrit 48.3 % (39.6-49.0); Lymphocytes % 31.1 % (15.3-44.8); MCV 87.7 fL (80-100); Platelets 198 thou/uL (152-406)
[2023-01-10] MEDS ORDERED: ONDANSETRON 4 MG/2 ML VIAL ONE (14:16)
[2023-01-10] MEDS ORDERED: NA CHLORIDE 0.9% 1,000 ML ONE (14:16)
[2023-01-10 14:29] LABS: Albumin 4.1 g/dL (3.4-5.0); Bilirubin Total 0.7 mg/dL (0.2-1.0); Potassium 3.8 mEq/L (3.5-5.1); Protein, Total 7.7 g/dL (6.4-8.2)
--- NOTE | 2023-01-10 14:37 | ER ---
Nurse's Notes [facility] Name: Marlon Aparicio Age: 57 yrs Sex: Male : 1965 Arrival Date: 01/10/2023 Time: 13:20 Bed 2 Private MD: Diagnosis: Dry mouth, foreign body sensation Presentation: 01/10 13:26 Chief complaint: EMS states: called for inability to swallow and short of breath, ko1 patient had a procedure yesterday at Dr Melara's office to open sinus cavity. Patient is currently drinking water. Coronavirus screen: At this time, the client does not indicate any symptoms associated with coronavirus-19. Ebola Screen: No symptoms or risks identified at this time. Initial Sepsis Screen: Does the patient meet any 2 criteria? No. Patient's initial sepsis screen is negative. Does the patient have a suspected source of infection? No. Patient's initial sepsis screen is negative. Risk Assessment: Do you want to hurt yourself or someone else? Patient reports no desire to harm self or others. Onset of symptoms was January 10, 2023. 13:26 Method Of Arrival: EMS: [facility] ko1 13:26 Acuity: KERRIE 3 ko1 Triage Assessment: 13:29 General: Appears in no apparent distress. uncomfortable, Behavior is calm, cooperative, ko1 appropriate for age. Pain: Complains of pain in throat. Historical: - Allergies: 13:29 No Known Allergies; ko1 - Home Meds: 13:29 lisinopril 10 mg Oral tab 1 tab once daily [Active]; ko1 - PMHx: 13:29 BPH; ko1 - Immunization history:: Adult Immunizations up to date. - Social history:: Smoking status: Patient denies any tobacco usage or history of. Screenin:08 [facility] ED Fall Risk Assessment (Adult) History of falling in the last 3 months, ss including since admission No falls in past 3 months (0 pts). Abuse screen: Denies threats or abuse. Denies injuries from another. Nutritional screening: No deficits noted. Tuberculosis screening: Never had TB. Assessment: 14:09 Reassessment: Patient appears in no apparent distress at this time. family at bedside. ss Labs sent. Awaiting results. Call light remains within reach. Vital Signs: 13:26 BP 126 / 101; Pulse 85; Resp 18; Temp 98(O); Pulse Ox 100% on R/A; ko1 14:38 BP 132 / 88; Pulse 65; Resp 16; Pulse Ox 100% ; ko1 ED Course: 13:25 Patient arrived in ED. eb 13:26 Svitlana Hudson MD is Attending Physician. sp3 13:26 Alyssia Richardson, RN is Primary Nurse. ko1 13:29 Triage completed. ko1 13:29 Arm band placed on right wrist. Patient placed in an exam room, on a stretcher, on ko1 pulse oximetry, Patient notified of wait time. 14:01 Neck Soft Tissue XRAY In Process Unspecified. EDMS 14:08 Patient has correct armband on for positive identification. Bed in low position. ss 14:08 No provider procedures requiring assistance completed. Inserted saline lock: 20 gauge ss in right antecubital area, using aseptic technique. Blood collected. 14:38 Provided Education on: na. ko1 14:43 IV discontinued, intact, bleeding controlled, No redness/swelling at site. Pressure ko1 dressing applied. Administered Medications: 14:08 Drug: NS 0.9% IV 1000 ml Route: IV; Rate: 1 bolus; Site: right antecubital; ss 14:08 Not Given (Patient Refused): Ondansetron IVP 4 mg IVP once; over 2 minutes ss Medication: 14:38 VIS not applicable for this client. ko1 Outcome: 14:37 Discharge ordered by . sp3 14:43 Discharged to home ambulatory, with family. ko1 14:43 Condition: improved 14:43 Discharge instructions given to patient, family, Instructed on discharge instructions, follow up and referral plans. Demonstrated understanding of instructions, follow-up care. 14:44 Patient left the ED. ko1 Signatures: Dispatcher [employer] EDMS Elle Valera RN RN Hannah Motta Svitlana Hudson MD MD sp3 Alyssia Richardson, STEPHANIA RN ko1
--- NOTE | 2023-01-10 14:37 | EDPHYS ---
Physician Documentation [facility] Name: Marlon Aparicio Age: 57 yrs Sex: Male : 1965 Arrival Date: 01/10/2023 Time: 13:20 Bed 2 Private MD: ED Physician Svitlana Hudson HPI: 01/10 13:40 This 57 yrs old Male presents to ER via EMS with complaints of difficulty sp3 swallowing. 13:40 57-year-old male with history of BPH only now presents to the ED with chief complaint sp3 difficulty swallowing. Patient had a sinus dilatation procedure done at his ENT physician with procedural sedation yesterday. Today he states that he has a hard time swallowing his saliva due to it "being sick" but is able to tolerate p.o. water no problem. Patient activated EMS and they brought patient here. They are concerned that "the saliva could be blocking his air passage". He currently denies fever, facial pain, throat pain, chest pain, back pain, shortness of breath, abdominal pain, nausea, vomiting, diarrhea, rash, syncope, near syncope, or any other signs or symptoms on ROS at this time.. Historical: - Allergies: 13:29 No Known Allergies; ko1 - Home Meds: 13:29 lisinopril 10 mg Oral tab 1 tab once daily [Active]; ko1 - PMHx: 13:29 BPH; ko1 - Immunization history:: Adult Immunizations up to date. - Social history:: Smoking status: Patient denies any tobacco usage or history of. ROS: 13:42 Constitutional: Negative for fever, chills, and weight loss, Eyes: Negative for injury, sp3 pain, redness, and discharge, ENT: Negative for injury, pain, and discharge, Neck: Negative for injury, pain, and swelling, Cardiovascular: Negative for chest pain, palpitations, and edema, Respiratory: Negative for shortness of breath, cough, wheezing, and pleuritic chest pain, Back: Negative for injury and pain, MS/Extremity: Negative for injury and deformity, Skin: Negative for injury, rash, and discoloration, Neuro: Negative for headache, weakness, numbness, tingling, and seizure, Psych: Negative for depression, anxiety, suicide ideation, homicidal ideation, and hallucinations, Allergy/Immunology: Negative for hives, rash, and allergies, Endocrine: Negative for neck swelling, polydipsia, polyuria, polyphagia, and marked weight changes, Hematologic/Lymphatic: Negative for swollen nodes, abnormal bleeding, and unusual bruising. 13:42 All other systems are negative. Exam: 13:42 Constitutional: This is a well developed, well nourished patient who is awake, alert, sp3 and in no acute distress. Head/Face: Normocephalic, atraumatic. Eyes: Pupils equal round and reactive to light, extra-ocular motions intact. Lids and lashes normal. Conjunctiva and sclera are non-icteric and not injected. Cornea within normal limits. Periorbital areas with no swelling, redness, or edema. Neck: Trachea midline, no thyromegaly or masses palpated, and no cervical lymphadenopathy. Supple, full range of motion without nuchal rigidity, or vertebral point tenderness. No Meningismus. Chest/axilla: Normal chest wall appearance and motion. Nontender with no deformity. No lesions are appreciated. Cardiovascular: Regular rate and rhythm with a normal S1 and S2. No gallops, murmurs, or rubs. Normal PMI, no JVD. No pulse deficits. Respiratory: Lungs have equal breath sounds bilaterally, clear to auscultation and percussion. No rales, rhonchi or wheezes noted. No increased work of breathing, no retractions or nasal flaring. Abdomen/GI: Soft, non-tender, with normal bowel sounds. No distension or tympany. No guarding or rebound. No evidence of tenderness throughout. 13:42 ENT: Nares patent. No nasal discharge, no septal abnormalities noted. External auditory canals are clear. Oropharynx with no redness, swelling, or masses, exudates, or evidence of obstruction, uvula midline. Mucous membranes moist. Vital Signs: 13:26 BP 126 / 101; Pulse 85; Resp 18; Temp 98(O); Pulse Ox 100% on R/A; ko1 14:38 BP 132 / 88; Pulse 65; Resp 16; Pulse Ox 100% ; ko1 MDM: 13:30 Patient medically screened. sp3 13:43 Data reviewed: vital signs, nurses notes, EMS record, lab test result(s), radiologic sp3 studies. ED course: 57-year-old male with difficulty swallowing likely due to mouth breathing secondary to his sinus procedure. Patient's mouth is dry but is because membranes are still appropriately moist. Patient is able to tolerate multiple glasses of water in the ED. There is no airway compromise. I will obtain soft tissue x-rays of the neck and routine labs as well as administer saline and Zofran for symptomatic control. If workup is negative, we will safely discharge patient home to ENT follow-up. There is no airway compromise I do not believe he has had any complications from this procedure other than dry mouth.. 14:36 ED course: Soft tissue x-rays of the neck demonstrate no foreign body or airway sp3 compromise with patent bypasses throughout the system. Laboratory values are normal. Patient feels much better at this time and we will safely discharge him home with follow-up with his ENT physician.. 01/10 13:31 Order name: CBC with Diff; Complete Time: 14:32 sp3 01/10 13:31 Order name: CMP; Complete Time: 14:32 sp3 01/10 13:31 Order name: Neck Soft Tissue XRAY sp3 01/10 13:31 Order name: IV Saline Lock; Complete Time: 14:03 sp3 01/10 13:31 Order name: Labs collected and sent; Complete Time: 14:03 sp3 Administered Medications: 14:08 Drug: NS 0.9% IV 1000 ml Route: IV; Rate: 1 bolus; Site: right antecubital; ss 14:08 Not Given (Patient Refused): Ondansetron IVP 4 mg IVP once; over 2 minutes ss Disposition Summary: 01/10/23 14:37 Discharge Ordered Location: Home sp3 Condition: Stable sp3 Diagnosis - Dry mouth, foreign body sensation sp3 Followup: sp3 - With: Private Physician - When: Upon discharge from the Emergency Department - Reason: Wound Recheck Discharge Instructions: - Discharge Summary Sheet sp3 - Nausea, Adult sp3 Forms: - Medication Reconciliation Form sp3 - Thank You Letter sp3 - Antibiotic Education sp3 - Prescription Opioid Use sp3 - Patient Portal Instructions sp3 Signatures: Dispatcher [employer] EDElle Coughlin RN RN ss Svitlana Hudson MD MD sp3 Alyssia Richardson RN RN ko1
--- NOTE | 2023-01-10 14:41 | RAD REPORT ---
EXAM DESCRIPTION: RAD - Neck Soft Tissue - 01/10/2023 1:59 pm CLINICAL HISTORY: Eft B sensation COMPARISON: None. TECHNIQUE: AP and lateral views of the neck soft tissues. FINDINGS: No radiopaque foreign body. Upper airway is patent. Epiglottis is unremarkable. Vallecula are patent. Waldeyer's ring lymphoid tissue is not suspiciously prominent. Cervical spine osseous str uctures are unremarkable. Visualized lung apices are unremarkable. IMPRESSION: No radiopaque foreign body. No acute abnormalities of the neck soft tissues.
[2023-01-10 15:04] VITALS: TEMP 98; O2SAT 100
[2023-01-10 15:05] VITALS: BP 132/88
== END 2023-01-10 14:44 | disposition home or self-care (01) ==
LOC: ER 13:20
DX: R68.2 Dry mouth, unspecified (principal); Z03.821 Encounter for observation for suspected ingested foreign body ruled out
CPT/HCPCS: 85025; 36415; 80053; 70360; 99284; J7030; J2405